=== PATIENT | female | born 1965 | race African-American/Black ===

== ENCOUNTER 2018-05-15 13:29 | Emergency (ER) | payer MEDICAID ==
[~2018-05-15] VITALS: Ht 170.2 cm; Wt 85.0 kg
[2018-05-15 14:20] VITALS: BP 114/78
== END 2018-05-15 17:32 | disposition left against medical advice (07) ==
LOC: ER 15:22
DX: Z53.21 Procedure and treatment not carried out due to patient leaving prior to being seen by health care provider (principal)

== ENCOUNTER 2019-09-24 06:26 | Emergency (ER) | payer MEDICARE, MEDICAID ==
[~2019-09-24] VITALS: Ht 167.6 cm; Wt 97.0 kg
[2019-09-24] MEDS ORDERED: HYDROCODONE/ACETAMINOPHEN 5/325MG TABLET PO PRN (07:15)
[2019-09-24 07:30] VITALS: BP 151/112
[2019-09-24] MEDS ORDERED: HYDROCODONE/ACETAMINOPHEN 5/325MG TABLET PO NR (07:45)
== END 2019-09-24 08:52 | disposition home or self-care (01) ==
LOC: ER 06:26
DX: S93.491A Sprain of other ligament of right ankle, initial encounter (principal); I10 Essential (primary) hypertension; Z88.6 Allergy status to analgesic agent; Z90.710 Acquired absence of both cervix and uterus; W01.0XXA Fall on same level from slipping, tripping and stumbling without subsequent striking against object, initial encounter; Y93.89 Activity, other specified; Y92.018 Other place in single-family (private) house as the place of occurrence of the external cause
CPT/HCPCS: 73610; 73630; 99284

== ENCOUNTER 2021-10-13 14:36 | Inpatient (IN) | payer MEDICARE, MEDICAID ==
[~2021-10-13] VITALS: Ht 170.2 cm; Wt 115.2 kg
[2021-10-13] MEDS ORDERED: ONDANSETRON HCL 4MG/2ML INJ IV STA ×2 (15:13→17:52)
[2021-10-13] MEDS ORDERED: MORPHINE SULFATE 4 MG/ML CPJ (NOT FOR IM USE) IV STA ×3 (15:13→20:04)
[2021-10-13] MEDS ORDERED: SODIUM CHLORIDE 0.9% 1,000 ML IV ONE (15:15)
[2021-10-13 16:06] LABS: BASOPHILS % 0.3 % (0.0-2.0); EOSINOPHILS % 0.1 % (0.0-5.0); HEMATOCRIT. 35.6 % (36.0-48.0); HEMOGLOBIN. 11.4 g/dL (12.0-16.0); LYMPHOCYTES % 7.7 % (20.0-50.0); MEAN CORPUSCULAR HEMOGLOBIN 22.8 pg (28.0-32.0); MEAN CORPUSCULAR VOLUME 71.2 fL (81.0-99.0); MONOCYTES % 6.4 % (2.0-8.0); NEUTROPHILS % 85.5 % (40.0-76.0); PLATELET 237 x1000/uL (130-400); RED CELL DISTRIBUTION WIDTH 14.5 % (11.6-14.6)
[2021-10-13 16:15] LABS: INR 1.1; PROTHROMBIN TIME 11.6 sec (9.6-11.0)
[2021-10-13 16:16] LABS: CHLORIDE 100 mEq/L (98-107)
[2021-10-13] MEDS ORDERED: IOHEXOL-300 100 ML BOTTLE ONE (18:15)
[2021-10-13] MEDS ORDERED: DEXT 5%/0.45% NACL 1000ML 1,000 ML IV SCH (21:30)
[2021-10-13] MEDS ORDERED: ONDANSETRON HCL 4MG/2ML INJ IV PRN ×3 (21:30→22:45)
[2021-10-13] MEDS ORDERED: CLONIDINE 0.1MG TABLET PO PRN (21:30)
[2021-10-13] MEDS ORDERED: MORPHINE SULFATE 2 MG/ML CPJ (NOT FOR IM USE) IV PRN (21:30)
[2021-10-13] MEDS ORDERED: IPRATROPIUM/ALBUTEROL 0.5-3(2.5)MG/3ML NEB HHN PRN (21:30)
[2021-10-13] MEDS ORDERED: NEOSTIGMINE METHYLSULFATE 1MG/ML 10 ML VIAL ONE ×2 (21:47→23:31)
[2021-10-13] MEDS ORDERED: PROPOFOL 200MG/20ML VIAL IV ONE (21:47)
[2021-10-13] MEDS ORDERED: FENTANYL CITRATE/PF 50MCG/ML 2ML VIAL ONE (21:47)
[2021-10-13] MEDS ORDERED: ROCURONIUM BROMIDE 10MG/ML VIAL 5ML IV ONE (21:47)
[2021-10-13] MEDS ORDERED: GLYCOPYRROLATE 0.2 MG/ML 2ML VIAL ONE ×3 (21:48→23:31)
[2021-10-13] MEDS ORDERED: MIDAZOLAM HCL 2 MG/2 ML VIAL ONE (21:48)
[2021-10-13] MEDS ORDERED: BUPIVACAINE HCL/PF 0.5% (5MG/ML) 10ML ONE (22:00)
[2021-10-13] MEDS ORDERED: DEXAMETHASONE 4MG/ML 1ML VIAL ONE (22:09)
[2021-10-13] MEDS ORDERED: ONDANSETRON HCL 4MG/2ML INJ ONE (22:09)
[2021-10-13] MEDS ORDERED: MORPHINE SULFATE 4 MG/ML CPJ (NOT FOR IM USE) IV PRN ×2 (22:15→23:15)
[2021-10-13] MEDS ORDERED: SODIUM CHLORIDE 0.9% 10ML VIAL ONE (22:34)
[2021-10-13] MEDS ORDERED: LIDOCAINE HCL/PF 1% 10 MG/ML 5ML VIAL ONE (22:34)
[2021-10-13] MEDS ORDERED: LABETALOL HCL 5MG/ML VIAL 20ML IV ONE (22:34)
[2021-10-13] MEDS ORDERED: CEFAZOLIN SODIUM 1000MG/VIAL ONE (22:34)
[2021-10-13] MEDS ORDERED: LABETALOL 5MG/ML SYR 20 MG/4 ML SYRINGE IV PRN (22:45)
[2021-10-13] MEDS ORDERED: SKIN ADHESIVE 0.7 GM EA TOP ONE (22:45)
[2021-10-13] MEDS ORDERED: MEPERIDINE HCL/PF 25MG/ML CPJ IV PRN (22:45)
[2021-10-13] MEDS: HYDROMORPHONE HCL/PF 2MG/ML CPJ IV PRN ×2 (23:31→23:43)
[2021-10-14] VITALS (7 sets, daily range): BP systolic 111–127; BP diastolic 82–88
[2021-10-14] MEDS ORDERED: METH-773 PO (02:09)
[2021-10-14] MEDS ORDERED: TIZA4TAB5 PO (02:09)
[2021-10-14] MEDS ORDERED: HYDR-4001 PO (02:09)
[2021-10-14] MEDS: MORPHINE SULFATE 2 MG/ML CPJ (NOT FOR IM USE) IV PRN ×4 (05:40→21:33)
[2021-10-14] MEDS: DEXT 5%/0.45% NACL KCL 20MEQ/L 1,000 ML IV SCH ×3 (05:45→18:06)
[2021-10-14] MEDS ORDERED: NALOXONE HCL 0.4 MG/ML 1ML VIAL IV PRN (05:45)
[2021-10-14] MEDS ORDERED: MORPHINE SULFATE 2 MG/ML CPJ (NOT FOR IM USE) IV PRN (05:45)
[2021-10-14 07:30] LABS: HEMATOCRIT. 37.5 % (36.0-48.0); HEMOGLOBIN. 11.4 g/dL (12.0-16.0); MEAN CORPUSCULAR HEMOGLOBIN 21.9 pg (28.0-32.0); RED BLOOD CELL COUNT 5.22 mill/uL (4.2-5.4); RED CELL DISTRIBUTION WIDTH 14.7 % (11.6-14.6)
[2021-10-14 07:43] LABS: CHLORIDE 105 mEq/L (98-107)
[2021-10-14 07:55] LABS: PHOSPHORUS 3.3 mg/dL (2.5-4.9)
[2021-10-14 09:11] LABS: PLATELET 225 x1000/uL (130-400)
[2021-10-14 09:16] LABS: PLATELET ESTIMATE NORMAL
[2021-10-14] MEDS: PANTOPRAZOLE SODIUM 40 MG/VIAL IV SCH (09:26)
[2021-10-14] MEDS: FAMOTIDINE 20MG/2ML VIAL IV SCH ×2 (09:26→21:33)
[2021-10-14] MEDS ORDERED: *PATIENT'S OWN MEDICATION STORAGE XX SCH (09:45)
[2021-10-14] MEDS ORDERED: MORPHINE SULFATE 4 MG/ML CPJ (NOT FOR IM USE) IV PRN (18:15)
[2021-10-15] VITALS: BP 120/87
[2021-10-15] MEDS: MORPHINE SULFATE 2 MG/ML CPJ (NOT FOR IM USE) IV PRN ×4 (02:40→18:37)
[2021-10-15] MEDS: DEXT 5%/0.45% NACL KCL 20MEQ/L 1,000 ML IV SCH ×2 (03:08→12:15)
[2021-10-15 04:00] VITALS: BP 143/79
[2021-10-15] MEDS: FAMOTIDINE 20MG/2ML VIAL IV SCH ×2 (09:35→19:59)
[2021-10-15] MEDS: PANTOPRAZOLE SODIUM 40 MG/VIAL IV SCH (09:35)
[2021-10-15 12:00] VITALS: BP 134/94
[2021-10-15 16:00] VITALS: BP 130/90
[2021-10-15 20:00] VITALS: BP 131/94
[2021-10-15] MEDS: DIPHENHYDRAMINE 50MG/ML VIAL IV PRN (20:11)
[2021-10-16] VITALS: BP 123/88
[2021-10-16] MEDS: DIPHENHYDRAMINE 50MG/ML VIAL IV PRN (00:35)
[2021-10-16] MEDS: MORPHINE SULFATE 2 MG/ML CPJ (NOT FOR IM USE) IV PRN (00:36)
[2021-10-16 04:00] VITALS: BP 125/84
[2021-10-16] MEDS: DEXT 5%/0.45% NACL KCL 20MEQ/L 1,000 ML IV SCH ×3 (05:55→18:12)
[2021-10-16 08:00] VITALS: BP 103/81
[2021-10-16] MEDS: FAMOTIDINE 20MG/2ML VIAL IV SCH ×2 (09:33→23:16)
[2021-10-16 12:00] VITALS: BP 130/86
[2021-10-16 16:00] VITALS: BP 121/72
[2021-10-16 16:48] LABS: EOSINOPHILS % 0.5 % (0.0-5.0); HEMATOCRIT. 35.8 % (36.0-48.0); HEMOGLOBIN. 11.1 g/dL (12.0-16.0); LYMPHOCYTES % 18.1 % (20.0-50.0); MEAN CORPUSCULAR HEMOGLOBIN 22.4 pg (28.0-32.0); MEAN CORPUSCULAR VOLUME 72.7 fL (81.0-99.0); MEAN PLATELET VOLUME 8.6 fl (7.4-10.4); MONOCYTES % 14.5 % (2.0-8.0); NEUTROPHILS % 66.9 % (40.0-76.0); PLATELET 217 x1000/uL (130-400); RED BLOOD CELL COUNT 4.93 mill/uL (4.2-5.4); RED CELL DISTRIBUTION WIDTH 14.8 % (11.6-14.6)
[2021-10-16 17:10] LABS: CHLORIDE 104 mEq/L (98-107)
[2021-10-16 17:17] LABS: PHOSPHORUS 1.7 mg/dL (2.5-4.9)
[2021-10-16 20:00] VITALS: BP 115/90
[2021-10-17 04:00] VITALS: BP 105/74
[2021-10-17] MEDS: DEXT 5%/0.45% NACL KCL 20MEQ/L 1,000 ML IV SCH (05:16)
[2021-10-17 08:00] VITALS: BP 119/79
[2021-10-17] MEDS: FAMOTIDINE 20MG/2ML VIAL IV SCH (09:55)
[2021-10-17] MEDS ORDERED: POTASSIUM PHOS,M-BASIC-D-BASIC 15 MMOL in DEXT 5% WATER 245 ML IV SCH (11:00)
[2021-10-17 12:00] VITALS: BP 111/81
[2021-10-17 12:56] VITALS: BP 111/81
== END 2021-10-17 15:10 | disposition home or self-care (01) | DRG 355 ==
LOC: ER 14:36 → MICUSO 18:41 → EDBEDREQ 18:59 → EDBEDREQTM 18:59 → 6EST 10-14 01:00
PROVIDERS: ADMIT Internal Medicine; ATTEND Internal Medicine
PROC: 0WQF0ZZ Repair Abdominal Wall, Open Approach (ICD-10-PCS; principal; 2021-10-14)
PROC: 0WJF4ZZ Inspection of Abdominal Wall, Percutaneous Endoscopic Approach (ICD-10-PCS; 2021-10-14)
DX: K42.0 Umbilical hernia with obstruction, without gangrene (principal); E66.01 Morbid (severe) obesity due to excess calories; E86.0 Dehydration; K43.6 Other and unspecified ventral hernia with obstruction, without gangrene; Z20.822 Contact with and (suspected) exposure to COVID-19; K66.0 Peritoneal adhesions (postprocedural) (postinfection); J45.909 Unspecified asthma, uncomplicated; E83.39 Other disorders of phosphorus metabolism; I10 Essential (primary) hypertension; Z68.39 Body mass index [BMI] 39.0-39.9, adult; Z79.899 Other long term (current) drug therapy; Z98.84 Bariatric surgery status; Z90.710 Acquired absence of both cervix and uterus; Z82.49 Family history of ischemic heart disease and other diseases of the circulatory system; Z88.8 Allergy status to other drugs, medicaments and biological substances
CPT/HCPCS: 36415; 71045; 74177; 80048; 80053; 83735; 84100; 84484; 85025; 87426; 93005; 99291; C1893; C9113; J0690; J1100; J1170; J1200; J2250; J2270; J2405; J2704; J2710; J3010; J3490; J7030; J7060; Q9967